=== PATIENT | male | born 1975 | race Caucasian/White ===

== ENCOUNTER → 2019-11-06 14:10 | Outpatient (CLI) | payer OTHER, SELFPAY | PROVIDERS: Referring Provider Internal Medicine; Visit Provider Internal Medicine | DX: Z23 Encounter for immunization (principal) | CPT/HCPCS: 90471; 90686 ==

== ENCOUNTER 2020-02-06 13:39 | Emergency (ER) | payer OTHER, SELFPAY ==
[2020-02-06 14:00] VITALS: BP 131/71; PULSE 96; RESP 16; TEMP 36.7; O2SAT 96
[2020-02-06] MEDS: predniSONE 20 MG TABLET 60 MG PO (14:00)
[2020-02-06] MEDS: LIDOCAINE PATCH 1 EACH ADH..PATCH TOP (14:00)
--- NOTE | 2020-02-06 14:02 | ED.BACK ---
HPI - Back Pain/Injury General Chief Complaint: Back Pain/Injury Stated Complaint: Tweeked Back Time Seen by Provider: 02/06/20 13:55 Source: patient Mode of arrival: Ambulatory Limitations: no limitations History of Present Illness HPI Narrative: 44-year-old male nonsmoker with history of low back pain presents with his in the chief complaint of a sudden onset exacerbation of his typical left lower back pain when moving a heavy object. He denies feeling a pop but states he felt a sudden onset in the pain and perhaps a pulling. The pain is exacerbated by motion and improves with rest. It feels similar to prior exacerbations of back pain. He denies any radiation down his leg. He denies any trouble controlling bowel or bladder, lower extremity weakness or footdrop. He has benefitted from a course of steroids and anti-inflammatories in the past. He denies any fall or direct bony injury. His pain is not midline, he denies any fever, history of IV drug abuse or use of blood thinners MD Complaint: back pain and back injury Onset (ago): hour(s) Duration: constant Similar Symptoms Previously: Yes Location: left lower back Severity: moderate Quality: sharp and stabbing Radiation: none Severity scale (1-10): 7 Relieving factors: immobilization Exacerbating factors: movement Context: while lifting Associated symptoms: denies other symptoms Treatments prior to arrival: NSAIDS Related Data Previous Rx's Medication Instructions Recorded ketorolac 10 mg PO Q6H PRN #10 tab 02/06/20 lidocaine [Lidoderm] 1 patch TOPICAL DAILY #15 ea 02/06/20 prednisone See Rx Instructions .ROUTE 02/06/20 .COMPLEX #30 tab Allergies Allergy/AdvReac Type Severity Reaction Status Date / Time No Known Drug Allergies Allergy Verified 02/06/20 14:00 Review of Systems Review of Systems ROS Unobtainable: All systems reviewed & are unremarkable except as noted in HPI and below Constitutional Constitutional: Denies body ache(s), Denies chills, Denies fever(s) and Denies headache(s) Eyes Eyes: Denies change in vision ENT Ears, Nose, Mouth, and Throat: Denies headache(s) Cardiovascular Cardiovascular: Denies chest pain, Denies irregular heart rhythm and Denies dyspnea Respiratory Respiratory: Denies cough and Denies dyspnea Gastrointestinal Gastrointestinal: Denies abdominal pain and Denies change in bowel habits Genitourinary Genitourinary: Denies difficulty urinating and Denies genital pain Musculoskeletal Musculoskeletal: Reports back pain, Denies numbness and Denies radiating pain into limb Integumentary/Breasts Skin/Breast: Denies erythema and Denies rash Neurologic Neurologic: Denies headache(s) and Denies numbness Hematologic/Lymphatic Hematologic/Lymphatic: Denies easy bruising Patient History Smoking Status: Current every day smoker alcohol intake frequency: 0-2 drinks per day Substance Use Type: does not use Exam Narrative Exam Narrative: GEN: AOx3 and in mild distress EYES: Pupils are equal, round, and reactive to light and accommodation. Extraoccular muscles are intact bilaterally. There is no subconjunctival hemorrhage or exudate. CHEST: Lungs are clear to auscultation bilaterally and free of wheezes, rales, or rhonchi. Heart rate is regular rhythm, there are no murmurs, clicks, rubs, or gallops. There is no chest wall tenderness. ABD: Abdomen is soft and nontender. There is no guarding or rebound. Bowel sounds are normal in all 4 quadrants. There is no mass or organomegaly. BACK: process tank tender but free of any obvious external abnormalities. Patient exam notes decreased range of motion and muscle spasm, but no CVA tenderness, or vertebral point tenderness. There are no symptoms of cauda equina such as saddle anesthesia, and decreased reflexes, decreased sensation or strength. EXT: Full painless ROM of all extremities with no loss of sensation or strength. SKIN: Warm, pink, and dry. No erythema or rash Initial Vital Signs Initial Vital Signs: Vital Signs Temperature 98.0 F 02/06/20 14:00 Pulse Rate 96 H 02/06/20 14:00 Respiratory Rate 16 02/06/20 14:00 Blood Pressure 131/71 02/06/20 14:00 Pulse Oximetry 96 02/06/20 14:00 Course Orders Ordered: Discontinued Medications Lidocaine (Lidocaine Patch 1 Each Adh..Patch) 1 each TOP NOW ONE Stop: 02/06/20 13:57 Last Admin: 02/06/20 14:00 Dose: 1 each Documented by: TRAN Prednisone (Prednisone 20 Mg Tablet) 60 mg PO NOW ONE Stop: 02/06/20 13:57 Last Admin: 02/06/20 14:00 Dose: 60 mg Documented by: TRAN MDM - Back Pain/Injury MDM Narrative Medical decision making narrative: Multiple etiologies of back pain considered including; Epidural abscess, cauda equina, mass occupying lesion, and other considered, but thought unlikely given history and physical. No imaging indicated today as there was no direct trauma and no evidence of radiculopathy or cauda equina. Return precautions given, patient and verbalized understanding. Questions answered to their apparent satisfaction Discharge Plan Departure Patient Disposition: Home Clinical Impression: Strain of lumbar region Qualifiers: Encounter type: initial encounter Qualified Code(s): S39.012A - Strain of muscle, fascia and tendon of lower back, initial encounter Instructions: DI for Back Spasm Activity Restrictions/Additional Instructions: *You have been diagnosed with [left lumbar pain without radiculopathy] *What to do: *Take medications as directed: Your [facility] here in [place] and your 's request. DO NOT combine Motrin/Ibuprofen with the prescription for Toradol that you've been given *Follow up with your primary care provider in 2-3 days, call for an appointment. Let them know you were seen in the Emergency Department and that we ask that you be seen in follow up *Return to ER if you should have any new, worsening or concerning symptoms, such as [increasing pain, trouble controlling bowel or bladder, lower extremity weakness, fever greater than 101 F or other bothersome symptoms] Prescriptions: New prednisone 10 mg tablet See Rx Instructions .Route .COMPLEX Qty: 30 RF: 0 ketorolac 10 mg tablet 10 mg PO Q6H PRN (Reason: pain) Qty: 10 RF: 0 lidocaine [Lidoderm] 5 % adhesive patch,medicated 1 patch topical DAILY Qty: 15 RF: 0
== END 2020-02-06 14:10 | disposition home or self-care (01) ==
PROVIDERS: Emergency Provider Emergency Medicine
DX: S39.012A Strain of muscle, fascia and tendon of lower back, initial encounter (principal); X50.0XXA Overexertion from strenuous movement or load, initial encounter
CPT/HCPCS: 99281; 99283

== ENCOUNTER → 2020-02-20 15:07 | Outpatient (CLI) | payer OTHER, SELFPAY ==
[2020-02-20] MEDS: COVID-19 VACC(MODERNA-1)/PF 100 MCG/0.5 ML VIAL IM (15:10)
== END ==
PROVIDERS: Visit Provider Internal Medicine
DX: Z23 Encounter for immunization (principal)
CPT/HCPCS: 0011A; 91301

== ENCOUNTER → 2020-03-16 12:39 | Outpatient (CLI) | payer OTHER, SELFPAY ==
--- NOTE | 2020-03-16 12:40 | DI.RAD.S_ITS ---
PROCEDURE: XR LUMBAR SPINE MIN 4V INDICATIONS: Lumbar radiculopathy TECHNIQUE: 5 views of the lumbar spine were acquired, including bilateral oblique views. COMPARISON: None. FINDINGS: Bones: 5 nonrib-bearing vertebrae are present. There is normal bony alignment. No vertebral body compression fractures. No suspicious bony lesions. There is efci-ja-[id number] disc disease throughout the lumbar spine. Moderate facet arthropathy at L4-L5. Soft tissues: Overlying bowel gas pattern is normal. No suspicious soft tissue calcifications. Oblique images: No pars defects. IMPRESSION: 1. Degenerative disc and facet disease in lumbar spine. 2. No pars defects. Dictated by: Cooper Campos M.D. on 03/16/2020 at 17:34 Approved by: Cooper Campos M.D. on 03/16/2020 at 17:36
== END ==
PROVIDERS: Referring Provider Physical Medicine & Rehabilitation; Visit Provider Physical Medicine & Rehabilitation
DX: M47.26 Other spondylosis with radiculopathy, lumbar region (principal); M51.16 Intervertebral disc disorders with radiculopathy, lumbar region
CPT/HCPCS: 72110

== ENCOUNTER → 2020-03-17 07:44 | Outpatient (CLI) | payer OTHER, SELFPAY ==
[2020-03-17] MEDS: COVID-19 VACC #2, MRNA(MOD) 100 MCG/0.5 ML VIAL IM (08:09)
== END ==
PROVIDERS: Visit Provider Internal Medicine
DX: Z23 Encounter for immunization (principal)
CPT/HCPCS: 0012A; 91301

== ENCOUNTER → 2020-04-02 08:11 | Outpatient (CLI) | payer OTHER, SELFPAY ==
--- NOTE | 2020-04-02 08:11 | DI.MRI.S_ITS ---
PROCEDURE: MR LUMBAR SPINE WO CON INDICATIONS: LUMBAR RADICULOPATHY TECHNIQUE: Noncontrast sagittal T1 spin echo and T2 fast echo, sagittal STIR, axial T1 and T2 fast spin echo through the lumbar spine. In cases with scoliosis, additional coronal T2 fast spin echo may be performed. COMPARISON: [facility], [place], XR LUMBAR SPINE MIN 4V, 03/16/2020, 12:42. FINDINGS: Image quality: Excellent. Alignment and Curvature: There is normal bony alignment. Bone Marrow: Marrow is of normal overall signal. No acute vertebral body compression fractures. Spinal Cord: Conus medullaris terminates at the T12-L1 level. Visualized cord demonstrates normal signal and size. Paraspinous Soft Tissues: No paravertebral masses. T12-L1: No canal stenosis or foraminal stenosis. L1-L2: Disc bulge. Minimal facet hypertrophy. No canal stenosis or foraminal stenosis. L2-L3: Mild facet hypertrophy. No canal stenosis or foraminal stenosis. L3-L4: Minimal disc bulge. Bilateral facet hypertrophy. No canal stenosis or foraminal stenosis. L4-L5: Mild posterior disc bulge. Facet hypertrophy. No significant canal stenosis. Left foraminal annulus tear plus disc bulge immediately subjacent to the exiting left L4 nerve root with mild left foraminal stenosis. L5-S1: Minimal disc bulge. Facet hypertrophy. No significant canal stenosis. No foraminal stenosis. IMPRESSION: 1. No central canal stenosis noted. 2. Multiple disc bulges. 3. Multilevel facet hypertrophy. 4. At L4-L5, there is a left foraminal annulus tear associated with disc bulge. This may potentially result in left L4 radiculitis. Recommend correlation with clinical symptomatology. Dictated by: Dilshad Tony M.D. on 04/02/2020 at 13:38 Approved by: Dilshad Tony M.D. on 04/02/2020 at 13:43
== END ==
PROVIDERS: Referring Provider Physical Medicine & Rehabilitation; Visit Provider Physical Medicine & Rehabilitation
DX: M51.16 Intervertebral disc disorders with radiculopathy, lumbar region (principal); M47.26 Other spondylosis with radiculopathy, lumbar region
CPT/HCPCS: 72148

== ENCOUNTER → 2020-10-06 18:34 | Outpatient (CLI) | payer OTHER, SELFPAY ==
[2020-10-06 19:02] LABS: COVID19 -Nasal RAPID Negative (Negative)
== END ==
PROVIDERS: PCP Physical Medicine & Rehabilitation; Visit Provider Nurse Practitioner
DX: Z20.822 Contact with and (suspected) exposure to COVID-19 (principal)
CPT/HCPCS: 87635

== ENCOUNTER → 2020-10-17 13:35 | Outpatient (CLI) | payer OTHER, SELFPAY ==
[2020-10-17 17:16] LABS: COVID19 -Nasal RAPID Negative (Negative)
== END ==
PROVIDERS: PCP Physical Medicine & Rehabilitation; Visit Provider Nurse Practitioner
DX: Z20.822 Contact with and (suspected) exposure to COVID-19 (principal)
CPT/HCPCS: 87635

== ENCOUNTER → 2020-11-16 10:34 | Outpatient (CLI) | payer OTHER, SELFPAY ==
[2020-11-16 11:08] LABS: COVID19 -Nasal RAPID Negative (Negative)
== END ==
PROVIDERS: PCP Physical Medicine & Rehabilitation; Referring Provider Nurse Practitioner Family; Visit Provider Nurse Practitioner Family
DX: Z20.822 Contact with and (suspected) exposure to COVID-19 (principal)
CPT/HCPCS: 87635